=== PATIENT | male | born 1995 | race Caucasian/White ===

== ENCOUNTER → 2016-10-16 | Day surgery (SDC) | payer OTHER ==
[~2016-10-16] VITALS: Ht 182.9 cm; Wt 85.3 kg
[~2016-10-16] MED LIST: ADVIL200 MG PO
--- NOTE | ~2016-10-16 | OR ---
PATIENT'S NAME: RASHEED CASH [facility] AGE: 20 [address] ROOM: [place] [address] LOCATION: [facility] ADMIT DATE: 10/16/2016 OR/Procedure Report DISCHARGE DATE: FAMILY PHYSICIAN: Calli Carrillo MD ATTENDING PHYSICIAN: Chester Qiu SURGEON: Chester Qiu MD ULTRASOUND TECH: DATE OF PROCEDURE: 10/16/2016 PREOPERATIVE DIAGNOSIS: Left cheek mass. POSTOPERATIVE DIAGNOSIS: Left cheek mass. ANESTHESIA: General. OPERATION PERFORMED: Excision of left cheek mass with intermediate closure (2.5 cm). HISTORY: Rasheed Cash is a 20-year-old gentleman who presented to me for evaluation of a left cheek mass. This is subcutaneous mass. The patient stated it increased in size and was concerning. Exam confirmed the above. The operative indications, potential risks, complications, and options were discussed with the patient and he wished to proceed with surgery. The patient was quite anxious. Therefore, general anesthesia was used. DESCRIPTION OF PROCEDURE: The patient was placed in the supine position and underwent general anesthesia without incident. The left cheek was prepped and draped in normal sterile fashion. An incision was marked out and infiltrated with 2 mL of 1% lidocaine with 1:100,000 epinephrine. Incision was carried down through the subcutaneous tissues, where the mass was identified and dissected out without difficulty. The wound was irrigated with sterile saline solution, closed with interrupted 4-0 Vicryl suture, and skin approximated with 6-0 nylon suture. Again, the patient tolerated the procedure well. The antibiotic ointment was applied. He was extubated and taken to recovery room in stable condition. Blood loss was minimal. CHESTER QIU MD DGO/modl /[id number] d: 10/16/16 0959 t: 10/30/16 0751, OPERATIVE SUMMARY
== END | disposition disaster alternative care site (69) ==
LOC: GPOC 10-10 08:00 → GSDC 06:29
PROC: 0HQ1XZZ Repair Face Skin, External Approach (ICD-10-PCS; principal; 2016-10-16)
PROC: 0JB10ZZ Excision of Face Subcutaneous Tissue and Fascia, Open Approach (ICD-10-PCS; 2016-10-16)
DX: L72.0 Epidermal cyst (principal); F17.220 Nicotine dependence, chewing tobacco, uncomplicated; Z88.2 Allergy status to sulfonamides
CPT/HCPCS: J1100; J2250; J2405; J7120